=== PATIENT | female | born 1955 | race Two or more races ===

== ENCOUNTER 2017-05-07 08:33 | Day surgery (SDC) | payer OTHER ==
[2017-05-02 13:25] VITALS: BMI 21.9
[2017-05-07] MEDS ORDERED: MIDAZOLAM HCL 2 MG/2 ML SINGLE DOSE VIAL ONE (10:57)
[2017-05-07] MEDS ORDERED: PROPOFOL 20 ML ONE (10:57)
[2017-05-07] MEDS ORDERED: ceFAZolin SODIUM 1 GM VIAL ONE (11:15)
[2017-05-07] MEDS ORDERED: ceFAZolin SODIUM 1 GM VIAL IVPB ONE (11:16)
[2017-05-07] MEDS ORDERED: DEXAMETHASONE SOD PHOSPHATE 4 MG/1 ML VIAL ONE (11:29)
[2017-05-07] MEDS ORDERED: ePHEDrine SULFATE 50 MG/1 ML AMPULE ONE (11:48)
[2017-05-07] MEDS ORDERED: KETOROLAC TROMETHAMINE 30 MG/1 ML VIAL ONE (12:25)
[2017-05-07] MEDS ORDERED: PROMETHAZINE HCL 25 MG/1 ML VIAL IVPUSH PRN (13:03)
[2017-05-07] MEDS ORDERED: ONDANSETRON 4 MG/2 ML VIAL IVPUSH PRN (13:03)
--- NOTE | 2017-05-07 13:13 | OP ---
Operative Note - Note: Operative Date: 05/07/17 Pre-Operative Diagnosis: History of Right Mastectomy with Bilateral Reconstruction, Right Capsular contracture with pain, Left Ruptured implant Operation: Right Breast Reconstruction Revision with Implant Removal, Capsulotomy, Revision of Implant Pocket & Replacement with a Smaller Implant. Left Breast Reconstruction with Removal of Ruptured Implant, Closure of Implant Pocket & Mastopexy. Implants: Right Side: [place] Memory Shape Gel 390cc Surgeon: Sony Crockett Anesthesia: General Specimens Removed: Right Breast Implant, Left Ruptured Saline Breast Implant Estimated Blood Loss (mls): 20 Operative Report Dictated: Yes
[2017-05-07] MEDS ORDERED: LACTATED RINGERS SOLUTION 1,000 ML IV SCH (13:15)
[2017-05-07] MEDS ORDERED: oxyCODONE HCL 5 MG TABLET PO PRN (13:23)
[2017-05-07 14:55] VITALS: TEMP 98.3
[2017-05-07 15:24] VITALS: BP 133/69; PULSE 90
--- NOTE | 2017-05-08 06:18 | OP ---
DATE OF OPERATION: 05/07/2017 PREOPERATIVE DIAGNOSIS: History of right mastectomy with bilateral reconstructions, right capsular contracture with pain, left ruptured implant. POSTOPERATIVE DIAGNOSIS: History of right mastectomy with bilateral reconstructions, right capsular contracture with pain, left ruptured implant. PROCEDURE PERFORMED: Right breast reconstruction revision with implant removal, capsulotomy, revision of implant pocket and replacement with a smaller implant, left breast reconstruction with removal of ruptured implant, closure of implant pocket, and mastopexy. SURGEON: Sony He MD ANESTHESIA: General. DESCRIPTION OF PROCEDURE: The patient was on the operating table in supine position, and the area of the chest was prepped and draped in the usual sterile fashion. Markings made with the patient preoperatively in the standing position were now used as a guide for surgery. The right breast was addressed first. The right breast previous inframammary scar was reopened and extended both medially and laterally. Dissection was carried down sharply through subcutaneous tissues and assisted with the electrocautery. The implant capsule was entered and noted to be thickened as expected. The implant was removed without difficulty, and was noted to be a 550-mL shaped, textured silicone gel implant. It was elected to perform a capsulotomy rather capsulectomy because of how thin the patients tissues are superficially. This capsulotomy was performed making multiple radial cuts in the capsule. The implant pocket was then further extended laterally and medially as marked. The implant selected was a 390-mL [place] MemoryShape implant of medium height and high profile which was inserted after irrigating the pocket with triple antibiotic solution. The implant was inserted with the assistance of a Rogel Funnel, and the position was confirmed with the manufacturers stripe on the implant. Closure was performed in layered fashion. Deep tissues were closed with No. 3-0 and 4-0 Biosyn sutures in interrupted buried fashion, and skin was closed with a deep dermal layer of 4-0 V-Loc 90 in continuous fashion. The left breast was then addressed, and the previous inframammary scar was reopened. The incision was carried down sharply through subcutaneous tissues with the assistance of the electrocautery, and the implant pocket was entered. A ruptured saline implant 150 mL in volume was removed. The pocket was then irrigated copiously, and the pocket was closed with multiple 3-0 Biosyn sutures in interrupted fashion. The patients previous vertical scar was then excised in a way that leaves a 6-cm vertical limb similar to the contralateral side. The flaps did not require undermining as the tissues were very thin, and wounds were closed in layered fashion. A willis suture of 2-0 silk was placed at the center of the inframammary fold, and deep tissues were closed with No. 3-0 and 4-0 Biosyn sutures in interrupted buried fashion. A deep dermal layer of 4-0 V-Loc 90 was then used for skin closure. All wounds were further secured with Steri-Strips and fluff dressings and combines, with a combine left on the right breast superiorly to help prevent a malposition of the implant during the early postoperative period. Dressings were secured with a surgical bra. The patient was then awoken from anesthesia without any difficulty and taken from the operating room to the recovery room in satisfactory condition having tolerated the procedure well. SONY HE M.D. /[id number]
--- NOTE | 2017-05-08 16:05 | PATH ---
Surgical Pathology Report Patient Name: RAPHAEL MAYS [facility]. Rec. #: [id number] /Age/Gender: 1955 (Age: 61) / F Account: [id number] Location: [facility] Taken: 05/07/2017 Received: 05/07/2017 Reported: 05/08/2017 Physicians: Sony Crockett M.D. Specimen(s) Received A: OLD RIGHT BREAST IMPLANT B: OLD LEFT BREAST IMPLANT Clinical History Not given Final Diagnosis A. OLD BREAST IMPLANT, RIGHT, REMOVAL: IMPLANT (GROSS EXAM). B. OLD BREAST IMPLANT, LEFT, REMOVAL: IMPLANT (GROSS EXAM). Electronically Signed Baudilio Salinas M.D. Gross Description A. Received fresh labeled "old right breast implant" is a 14.0 x 12.0 x 6.0 cm [place], irregular, intact breast implant. No soft tissue is present. No sections are submitted, gross only. B. Received fresh labeled "left breast implant" is a 9.5 x 8.0 x 2.5 cm breast implant with a focal defect. No soft tissue is present. No sections are submitted, gross only. DL/05/07/2017 saudi05/07/2017
== END 2017-05-07 15:45 | disposition home or self-care (01) ==
LOC: JASU-SURG 08:33
PROVIDERS: ATTEND Plastic Surgery
PROC: 0HWT0JZ Revision of Synthetic Substitute in Right Breast, Open Approach (ICD-10-PCS; principal; 2017-05-07 11:00)
PROC: 0HQU0ZZ Repair Left Breast, Open Approach (ICD-10-PCS; 2017-05-07 11:00)
DX: T85.44XA Capsular contracture of breast implant, initial encounter (principal); T85.43XD Leakage of breast prosthesis and implant, subsequent encounter; Y83.8 Other surgical procedures as the cause of abnormal reaction of the patient, or of later complication, without mention of misadventure at the time of the procedure; Y92.9 Unspecified place or not applicable; Z90.11 Acquired absence of right breast and nipple; Z98.82 Breast implant status
CPT/HCPCS: 88300-TC; 94760